=== PATIENT | male | born 1990 | race African-American/Black ===

== ENCOUNTER 2017-12-14 07:59 | Emergency (ER) | payer BC ==
[2017-12-14 08:28] VITALS: BP 138/86
--- NOTE | 2017-12-14 08:48 | UC ---
Shortness of Breath HPI - HPI Summary HPI Summary: Sudden onset left lateral chest pain, pleuritic, associated with sob. He has no prior medical care and does not know any prior conditions. He denies fever or productive cough. He had uri last week. FH of heart disease and cancer. He is a smoker. - History of Current Complaint Chief Complaint: UCRespiratory Stated Complaint: ST, CONGESTION, COUGH Time Seen by Provider: 12/14/17 08:42 Hx Obtained From: Patient Onset/Duration: Sudden Onset, Lasting Hours Timing: Constant Current Severity: Moderate Dyspnea At: Rest Aggrevating Factors: Deep Breaths Alleviating Factors: Nothing Associated Signs & Symptoms: Positive: Cough (Nonproductive), Chest Pain w/ Cough. Negative: Fever, Chills, Nasal Congestion, Calf Pain/Swelling, Edema Related History: Obesity - Risk Factors Pulmonary Embolism: Smoking - Allergy/Home Medications Allergies/Adverse Reactions: Allergies Allergy/AdvReac Type Severity Reaction Status Date / Time No Known Allergies Allergy Verified 12/14/17 08:23 Home Medications: Home Medications Guaifen/Phenyleph/Acetaminophn [Sudafed PE [id number]] 2 each PO Q4H PRN 12/14/17 [History Confirmed 12/14/17] PMH/Surg Hx/FS Hx/Imm Hx Previously Healthy: No - obesity. No prior medical care. - Surgical History Surgical History: None - Family History Known Family History: Positive: Other - Social History Occupation: Employed Full-time Alcohol Use: Occasionally Substance Use Type: None Smoking Status (MU): Never Smoked Tobacco Review of Systems Respiratory: Shortness Of Breath Cardiovascular: Chest Pain All Other Systems Reviewed And Are Negative: Yes Physical Exam Triage Information Reviewed: Yes Appearance: Pain Distress, Obese Vital Signs: Initial Vital Signs Temp 98.1 F 12/14/17 08:24 Pulse 78 12/14/17 08:24 Resp 18 12/14/17 08:24 BP 138/86 12/14/17 08:24 Pulse Ox 99 12/14/17 08:24 Vital Signs Reviewed: Yes Eyes: Positive: Conjunctiva Clear ENT: Positive: Normal ENT inspection Neck: Positive: Supple, Nontender, No Lymphadenopathy Respiratory: Positive: Lungs clear - clear but distant due to body habitus., Respiratory distress, Decreased breath sounds. Negative: No respiratory distress, No accessory muscle use Cardiovascular: Positive: No Murmur, Tachycardia Abdomen Description: Positive: No Organomegaly, Soft. Negative: Distended, Guarding Musculoskeletal: Positive: Strength Intact, ROM Intact Neurological: Positive: Alert, Muscle Tone Normal. Negative: Fatigued Psychological: Positive: Age Appropriate Behavior Skin: Negative: rashes Shortness of Breath Dx - Course Course Of Treatment: We talked at length about possible etiologies. Regardless of cause, he is clearly struggling with sob, tachycardia and stenting his breathing due to pain. he does agree to go to ED but adamantly refuses transfer by ambulance due to possible cost even though I tell him insurance may cover this. He has been told in no uncertain terms that he runs the risk of sudden or worsening condition in route. Dr. Mistry at [place] [facility] accepts patient. Girlfriend is also aware of severity and agrees to drive him and make sure he gets care. - Differential Dx/Diagnosis Provider Diagnoses: sob. tachycardia. chest pain Discharge - Sign-Out/Discharge Documenting (check all that apply): Patient Departure - Discharge Plan Condition: Guarded Disposition: TRANS HIGHER LVL OF CARE FAC Referrals: No Primary Care Phys,NOPCP [Primary Care Provider] - - Billing Disposition and Condition Condition: GUARDED Disposition: Trans Higher Lvl of Care Fac
--- NOTE | 2017-12-14 09:08 | UC ---
Throat Pain/Nasal Isauro HPI - HPI Summary HPI Summary: Sore throat, nasal congestion for four days. No fever but there is chills. No prior sinus disease. - History of Current Complaint Chief Complaint: UCRespiratory Stated Complaint: ST, CONGESTION, COUGH Time Seen by Provider: 12/14/17 08:42 Hx Obtained From: Patient Onset/Duration: Gradual Onset, Lasting Days Severity: Mild Pain Intensity: 0 Cough: Nonproductive Associated Signs & Symptoms: Positive: Dysphagia, Sinus Discomfort. Negative: Fever, Rash - Epiglottits Risk Factors Epiglottis Risk Factors: Negative - Allergies/Home Medications Allergies/Adverse Reactions: Allergies Allergy/AdvReac Type Severity Reaction Status Date / Time No Known Allergies Allergy Verified 12/14/17 08:23 Home Medications: Home Medications Guaifen/Phenyleph/Acetaminophn [Sudafed PE [id number]] 2 each PO Q4H PRN 12/14/17 [History Confirmed 12/14/17] PMH/Surg Hx/FS Hx/Imm Hx Previously Healthy: Yes - Surgical History Surgical History: None - Family History Known Family History: Positive: Other - Social History Occupation: Employed Full-time Alcohol Use: Occasionally Substance Use Type: None Smoking Status (MU): Never Smoked Tobacco Review of Systems ENT: Sore Throat, Sinus Congestion Respiratory: Cough All Other Systems Reviewed And Are Negative: Yes Physical Exam Triage Information Reviewed: Yes Appearance: Well-Appearing, No Pain Distress, Well-Nourished Vital Signs: Initial Vital Signs Temp 98.1 F 12/14/17 08:24 Pulse 78 12/14/17 08:24 Resp 18 12/14/17 08:24 BP 138/86 12/14/17 08:24 Pulse Ox 99 12/14/17 08:24 Vital Signs Reviewed: Yes Eyes: Positive: Conjunctiva Clear ENT: Positive: Normal ENT inspection, Hearing grossly normal, Pharynx normal, Nasal congestion, TMs normal, Uvula midline. Negative: Pharyngeal erythema, Nasal drainage, TM bulging, TM dull, TM red, Tonsillar swelling, Tonsillar exudate, Trismus, Dental tenderness, Sinus tenderness Neck: Positive: Supple, Nontender, No Lymphadenopathy Respiratory: Positive: Lungs clear - clear but distant due to body habitus., Normal breath sounds, No respiratory distress, No accessory muscle use. Negative: Respiratory distress, Decreased breath sounds, Crackles, Rhonchi, Stridor, Wheezing Cardiovascular: Positive: No Murmur, Pulses Normal, Brisk Capillary Refill Abdomen Description: Positive: No Organomegaly, Soft. Negative: Distended, Guarding Musculoskeletal: Positive: Strength Intact, ROM Intact, No Edema Neurological: Positive: Alert, Muscle Tone Normal. Negative: Fatigued Psychological: Positive: Age Appropriate Behavior Skin: Negative: rashes Throat Pain/Nasal Course/Dx - Course Assessment/Plan: focus on decongestants and netti pots. he will start antibiotics if he gets any new symptoms or sinus symptoms then he will fill antibiotics. - Differential Dx/Diagnosis Provider Diagnoses: uri. early sinusitis Discharge - Sign-Out/Discharge Documenting (check all that apply): Patient Departure - Discharge Plan Condition: Good Disposition: HOME Prescriptions: Amoxicillin PO (*) [Amoxicillin 500 MG CAP*] 500 mg PO TID #30 cap Patient Education Materials: Upper Respiratory Infection (ED) Forms: *Work Release Referrals: No Primary Care Phys,NOPCP [Primary Care Provider] - - Billing Disposition and Condition Condition: GOOD Disposition: Home
== END 2017-12-14 09:08 | disposition home or self-care (01) ==
LOC: UCCORT 07:59
DX: J01.90 Acute sinusitis, unspecified (principal); R06.02 Shortness of breath; R00.0 Tachycardia, unspecified; R07.9 Chest pain, unspecified; E66.9 Obesity, unspecified
CPT/HCPCS: 99202; G0463